=== PATIENT | male | born 1970 | race American Indian/Alaskan Native ===

== ENCOUNTER 2018-04-30 05:47 | Emergency (ER) | payer MEDICAID ==
[2018-04-30 06:29] VITALS: BP 134/79
[2018-04-30] MEDS ORDERED: DUONEB *Not for PRN Use IH ONE (06:34)
--- NOTE | 2018-04-30 06:34 | Emergency Department Report ---
<ANTONIA WICK - Last Filed: 04/30/18 09:37> ED General Adult HPI - General Chief complaint: Head Injury Stated complaint: HEAD INJURY Time Seen by Provider: 04/30/18 06:22 - Related Data Previous Rx's Medication Instructions Recorded Last Taken Type ALBUTEROL Inhaler (OR & NICU) 2 puff IH Q4HR PRN #1 inhalation 04/30/18 Unknown Rx [ProAir HFA Inhaler] Benzonatate [Tessalon Perles] 100 mg PO Q8HR PRN #20 capsule 04/30/18 Unknown Rx HYDROcodone/APAP 5-325 [[place] 1 each PO Q6HR PRN #12 tablet 04/30/18 Unknown Rx 5/325] guaiFENesin/CODEINE [Robitussin AC] 5 ml PO Q12HR PRN #180 oral.liqd 04/30/18 Unknown Rx levoFLOXacin [Levaquin] 750 mg PO QDAY #5 tablet 04/30/18 Unknown Rx Allergies Allergy/AdvReac Type Severity Reaction Status Date / Time No Known Allergies Allergy Verified 04/30/18 08:08 ED Past Medical Hx - Medications Home Medications: Home Medications Medication Instructions Recorded Confirmed Last Taken Type ALBUTEROL Inhaler (OR & NICU) 2 puff IH Q4HR PRN #1 inhalation 04/30/18 Unknown Rx [ProAir HFA Inhaler] Benzonatate [Tessalon Perles] 100 mg PO Q8HR PRN #20 capsule 04/30/18 Unknown Rx HYDROcodone/APAP 5-325 [[place] 1 each PO Q6HR PRN #12 tablet 04/30/18 Unknown Rx 5/325] guaiFENesin/CODEINE [Robitussin AC] 5 ml PO Q12HR PRN #180 oral.liqd 04/30/18 Unknown Rx levoFLOXacin [Levaquin] 750 mg PO QDAY #5 tablet 04/30/18 Unknown Rx - Laceration /Wound Repair Right Head Wound Location: head (right scalp) Wound Length (cm): 10 Wound's Depth, Shape: flap Wound Explored: clean Irrigated w/ Saline (ccs): 40 Betadine Prep?: Yes Anesthesia: Lidocaine w/ Epi (1% with 1:200,000) Volume Anesthetic (ccs): 8 Wound Repaired With: sutures Layer Closure?: Yes Deep Layer Suture Size/Type: 3:0 (Vicryl) Number Deep Layer Sutures: 1 Progress: Under sterile field, I used Betadine to clean the area. I then used 40 mL of normal saline to flush the area. Hans Cardona used 1% lidocaine with epi 1- 200,000 and injected 8 mL to the wound. I then used a 3-0 Vicryl to suture the laceration to proximate the lac with total of 1 stitch placed. I then used Stapler and stapled the lac with total of 13 gio placed. I then applied a sterile 4 x 4 with tape. Minimal bleeding noted but is under control. Patient tolerated procedure well with no signs of distress. ED Medical Decision Making - Lab Data Result diagrams: 04/30/18 06:49 04/30/18 06:49 - Medical Decision Making Patient was seen by Hans Cardona. I performed the lac repair. Please review lac procedure notes. ED Disposition Clinical Impression: Pneumonia, Laceration, Head injury, Vasovagal episode Disposition: - TO HOME OR SELFCARE Condition: Stable Instructions: Bacterial Pneumonia (ED), Laceration (ED), Minor Head Injury (ED) Additional Instructions: return if worse Prescriptions: ALBUTEROL Inhaler (OR & NICU) [ProAir HFA Inhaler] 2 puff IH Q4HR PRN #1 inhalation PRN Reason: Shortness Of Breath Benzonatate [Tessalon Perles] 100 mg PO Q8HR PRN #20 capsule PRN Reason: Cough guaiFENesin/CODEINE [Robitussin AC] 5 ml PO Q12HR PRN #180 oral.liqd PRN Reason: Cough HYDROcodone/APAP 5-325 [[place] 5/325] 1 each PO Q6HR PRN #12 tablet PRN Reason: Pain levoFLOXacin [Levaquin] 750 mg PO QDAY #5 tablet Referrals: [facility] MD SARAH [Primary Care Provider] - 3-5 Days DEYANIRA ABBOTT MD [Staff Physician] - 3-5 Days KIMMY DIAZ MD [Staff Physician] - 3-5 Days CATALINA ANNE DO [Staff Physician] - 3-5 Days ROSHAN LINDER MD [Staff Physician] - 3-5 Days [facility] [Provider Group] - 3-5 Days [facility] [Provider Group] - 3-5 Days [facility] [Outside] - 3-5 Days [facility] [Provider Group] - 3-5 Days <LELA RODRIGUEZ - Last Filed: 04/30/18 10:01> ED General Adult HPI - General Source: patient Mode of arrival: Ambulatory Limitations: No Limitations - History of Present Illness Initial comments: She presents to emergency department with chief complaint of syncopal episode around midnight last night with resultant head injury includes a laceration of the scalp. Patient also complains of increased shortness of breath and has a history of COPD and congestive heart failure. Patient denies chest pain. -: Sudden Location: head Severity scale (0 -10): 10 Quality: aching Consistency: constant Improves with: none Worsens with: none Associated Symptoms: denies other symptoms Treatments Prior to Arrival: none ED Review of Systems ROS: Stated complaint: HEAD INJURY Other details as noted in HPI Constitutional: denies: chills, fever Eyes: denies: eye pain, eye discharge, vision change ENT: denies: ear pain, throat pain Respiratory: shortness of breath. denies: cough, wheezing Cardiovascular: denies: chest pain, palpitations Endocrine: no symptoms reported Gastrointestinal: denies: abdominal pain, nausea, diarrhea Genitourinary: denies: urgency, dysuria Musculoskeletal: denies: back pain, joint swelling, arthralgia Skin: denies: rash, lesions Neurological: denies: headache, weakness, paresthesias Psychiatric: denies: anxiety, depression Hematological/Lymphatic: denies: easy bleeding, easy bruising ED Past Medical Hx - Past Medical History Previous Medical History?: Yes Hx Hypertension: Yes Hx Seizures: Yes (No seizure in 2 years) Additional medical history: Colostomy bag - Surgical History Past Surgical History?: Yes Additional Surgical History: Colostomy bag - Social History Smoking Status: Current Every Day Smoker ED Physical Exam - General Limitations: No Limitations General appearance: alert, in no apparent distress - Head Head exam: Present: normocephalic, other (2 cm laceration to the parietal aspect of right side of the scalp) - Eye Eye exam: Present: normal appearance, PERRL, EOMI - ENT ENT exam: Present: mucous membranes moist - Neck Neck exam: Present: normal inspection - Respiratory Respiratory exam: Present: normal lung sounds bilaterally, wheezes, rales. Absent: respiratory distress - Cardiovascular Cardiovascular Exam: Present: regular rate, normal rhythm. Absent: systolic murmur, diastolic murmur, rubs, gallop - GI/Abdominal GI/Abdominal exam: Present: soft, normal bowel sounds, other (there is some umbilicus bruising from coughing colostomy in place). Absent: distended, tenderness - Rectal Rectal exam: Present: deferred - Extremities Exam Extremities exam: Present: normal inspection - Back Exam Back exam: Present: normal inspection - Neurological Exam Neurological exam: Present: alert, oriented X3 - Psychiatric Psychiatric exam: Present: normal affect, normal mood - Skin Skin exam: Present: warm, dry, intact, normal color. Absent: rash ED Course Vital Signs 04/30/18 04/30/18 04/30/18 05:59 06:27 07:56 Temperature 98.1 F 98.2 F Pulse Rate 132 H 100 H Pulse Rate [ 126 H Posterior Bilateral Throughout] Respiratory 24 19 Rate Respiratory 20 Rate [Posterior Bilateral Throughout] Blood Pressure 142/91 Blood Pressure 134/79 [Left] O2 Sat by Pulse 97 97 Oximetry 04/30/18 04/30/18 04/30/18 08:13 08:17 08:34 Temperature Pulse Rate Pulse Rate [ 151 H 125 H 128 H Posterior Bilateral Throughout] Respiratory Rate Respiratory 24 20 20 Rate [Posterior Bilateral Throughout] Blood Pressure Blood Pressure [Left] O2 Sat by Pulse Oximetry ED Medical Decision Making - Lab Data Result diagrams: 04/30/18 06:49 04/30/18 06:49 Lab Results 04/30/18 04/30/18 04/30/18 Range/Units 06:49 06:49 06:49 WBC 10.3 (4.5-11.0) K/mm3 RBC 5.17 H (3.65-5.03) M/mm3 Hgb 15.5 H (11.8-15.2) gm/dl Hct 44.9 (35.5-45.6) % MCV 87 (84-94) fl MCH 30 (28-32) pg MCHC 35 H (32-34) % RDW 14.6 (13.2-15.2) % Plt Count 269 (140-440) K/mm3 Lymph % (Auto) 25.7 (13.4-35.0) % [place] % (Auto) 7.7 H (0.0-7.3) % Eos % (Auto) 3.1 (0.0-4.3) % Baso % (Auto) 1.1 (0.0-1.8) % Lymph # 2.6 (1.2-5.4) K/mm3 [place] # 0.8 (0.0-0.8) K/mm3 Eos # 0.3 (0.0-0.4) K/mm3 Baso # 0.1 (0.0-0.1) K/mm3 Seg Neutrophils % 62.4 (40.0-70.0) % Seg Neutrophils # 6.4 (1.8-7.7) K/mm3 PT 13.9 (12.2-14.9) Sec. INR 1.01 (0.87-1.13) APTT 27.6 (24.2-36.6) Sec. Sodium 136 L (137-145) mmol/L Potassium 3.4 L (3.6-5.0) mmol/L Chloride 99.2 (98-107) mmol/L Carbon Dioxide 22 (22-30) mmol/L Anion Gap 18 mmol/L BUN 10 (9-20) mg/dL Creatinine 1.0 (0.8-1.5) mg/dL Estimated GFR > 60 ml/min BUN/Creatinine Ratio 10 % Glucose 139 H (75-100) mg/dL Calcium 8.3 L (8.4-10.2) mg/dL Total Bilirubin 0.40 (0.1-1.2) mg/dL AST 32 (5-40) units/L ALT 35 (7-56) units/L Alkaline Phosphatase 57 (35-129) units/L NT-Pro-B Natriuret Pep 31.93 (0-450) pg/mL Total Protein 7.0 (6.3-8.2) g/dL Albumin 3.6 L (3.9-5) g/dL Albumin/Globulin Ratio 1.1 % - EKG Data -: EKG Interpreted by Nm EKG shows normal: sinus rhythm Rate: tachycardia - Radiology Data Radiology results: report reviewed - Medical Decision Making Discussed results with patient and need to follow with primary care physician Critical care attestation.: If time is entered above; I have spent that time in minutes in the direct care of this critically ill patient, excluding procedure time. ED Disposition Is pt being admited?: No Does the pt Need Aspirin: No Time of Disposition: 10:00
--- NOTE | 2018-04-30 07:09 | XRay Report ---
FINAL REPORT EXAM: XR CHEST 1V AP HISTORY: sob TECHNIQUE: AP portable view(s) of the chest obtained. PRIORS: None. FINDINGS: No mediastinal shift. Cardiac silhouette is not enlarged. No pneumothorax or definite effusion. Patch y right basilar opacities. Diffuse interstitial prominence. No acute skeletal finding. IMPRESSION: Right lower lung airspace disease. Basilar interstitial prominence may also be infectious or due to e donald. PA and lateral chest radiographic follow-up to resolution is recommended.
[2018-04-30 07:12] LABS: Basophils # (Auto) 0.1 K/mm3 (0.0-0.1); Basophils % (Auto) 1.1 % (0.0-1.8); Eosinophils # (Auto) 0.3 K/mm3 (0.0-0.4); Eosinophils % (Auto) 3.1 % (0.0-4.3); Hematocrit 44.9 % (35.5-45.6); Hemoglobin 15.5 gm/dl (11.8-15.2); Lymphocytes # (Auto) 2.6 K/mm3 (1.2-5.4); Lymphocytes % (Auto) 25.7 % (13.4-35.0); Mean Corpuscular HGB Conc 35 % (32-34); Mean Corpuscular Volume 87 fl (84-94); Monocytes # (Auto) 0.8 K/mm3 (0.0-0.8); Monocytes % (Auto) 7.7 % (0.0-7.3); Platelet Count 269 K/mm3 (140-440); Red Blood Count 5.17 M/mm3 (3.65-5.03); Red Cell Distribution Width 14.6 % (13.2-15.2)
[2018-04-30 07:22] LABS: INR 1.01 (0.87-1.13); Partial Thromboplastin Time 27.6 Sec. (24.2-36.6)
--- NOTE | 2018-04-30 07:30 | Cat Scan Report ---
CT HEAD WITHOUT CONTRAST: HISTORY: Syncope, head injury. TECHNIQUE: Sequential 2.5mm CT images. COMPARISON: none. FINDINGS: Cerebral Parenchyma: Within normal limits. Cerebellum: Within normal limits. Brainstem: Within normal limits. Ventricles: Normal. Sella: Normal. Extra-axial spaces: Normal. Basal Cisterns: Normal. Intracranial Hemorrhage: None. Midline Shift: None. Calvarium: No calvarial fracture. There is a moderate soft tissue hematoma in the right parietal region. Sinuses: Severe mucosal thickening is identified in the ethmoid air cells and right maxillary sinus. Mastoid Air Cells: Normal. Visualized Orbits: Normal. IMPRESSION: Right parietal soft tissue injury. No acute intracranial findings. Chronic sinus disease.
[2018-04-30 07:31] LABS: Alanine Aminotransferase 35 units/L (7-56); Albumin 3.6 g/dL (3.9-5); BUN/Creatinine Ratio 10; Blood Urea Nitrogen 10 mg/dL (9-20); Calcium 8.3 mg/dL (8.4-10.2); Hemolysis Index 14
[2018-04-30] MEDS ORDERED: ZOFRAN ODT PO ONE (07:58)
[2018-04-30] MEDS ORDERED: NORCO 10/325 PO ONE (07:58)
[2018-04-30] MEDS ORDERED: XOPENEX IH ONE (08:14)
[2018-04-30] MEDS ORDERED: NACL 0.9% 500 ML IR ONE (08:41)
[2018-04-30] MEDS ORDERED: XYLOCAINE 1%/ EPI 1:100,000 INFILTRATI NR (09:00)
[2018-04-30] MEDS ORDERED: LEVAQUIN PO ONE (10:00)
[2018-04-30] MEDS ORDERED: NACL 0.9% IR ONE (10:37)
== END 2018-04-30 10:39 | disposition home or self-care (01) ==
LOC: ED 05:47
DX: S09.90XA Unspecified injury of head, initial encounter (principal); T14.8XXA Other injury of unspecified body region, initial encounter; J18.9 Pneumonia, unspecified organism; R55 Syncope and collapse; I11.0 Hypertensive heart disease with heart failure; I50.9 Heart failure, unspecified; F17.200 Nicotine dependence, unspecified, uncomplicated; W19.XXXA Unspecified fall, initial encounter; Y93.89 Activity, other specified; Y92.89 Other specified places as the place of occurrence of the external cause; Y99.8 Other external cause status
CPT/HCPCS: 36415; 70450; 71045; 80053; 83880; 85025; 85610; 85730; 93005; 93010; 94640; Q0162

== ENCOUNTER 2018-05-08 12:53 | Emergency (ER) | payer MEDICAID ==
--- NOTE | 2018-05-08 12:59 | Emergency Department Report ---
Suture/Staple Removal - [facility] Chief Complaint: Laceration/Recheck/Suture Stated Complaint: STAPLE REMOVAL Time Seen by Provider: 05/08/18 12:58 Wound Location: right head scalp area ED Review of Systems ROS: Stated complaint: STAPLE REMOVAL Other details as noted in HPI Constitutional: denies: chills, fever Eyes: denies: eye pain, eye discharge, vision change ENT: denies: ear pain, throat pain Respiratory: denies: cough, shortness of breath, wheezing Cardiovascular: denies: chest pain, palpitations Endocrine: no symptoms reported Gastrointestinal: denies: abdominal pain, nausea, diarrhea Genitourinary: denies: urgency, dysuria Musculoskeletal: denies: back pain, joint swelling, arthralgia Skin: denies: rash, lesions Neurological: denies: headache, weakness, paresthesias Psychiatric: denies: anxiety, depression Hematological/Lymphatic: denies: easy bleeding, easy bruising ED Past Medical Hx - Past Medical History Hx Hypertension: Yes Hx Congestive Heart Failure: Yes Hx Seizures: Yes (No seizure in 2 years) Hx COPD: Yes Additional medical history: Colostomy bag - Surgical History Additional Surgical History: Colostomy bag - Social History Smoking Status: Current Every Day Smoker - Medications Home Medications: Home Medications Medication Instructions Recorded Confirmed Last Taken Type ALBUTEROL Inhaler (OR & NICU) 2 puff IH Q4HR PRN #1 inhalation 04/30/18 Unknown Rx [ProAir HFA Inhaler] Benzonatate [Tessalon Perles] 100 mg PO Q8HR PRN #20 capsule 04/30/18 Unknown Rx HYDROcodone/APAP 5-325 [[place] 1 each PO Q6HR PRN #12 tablet 04/30/18 Unknown Rx 5/325] guaiFENesin/CODEINE [Robitussin AC] 5 ml PO Q12HR PRN #180 oral.liqd 04/30/18 Unknown Rx levoFLOXacin [Levaquin] 750 mg PO QDAY #5 tablet 04/30/18 Unknown Rx Suture Removal Exam - Exam General: Vital signs noted. No distress. Alert and acting appropriately. Wound: No Pathologic Erythema, No Tenderness, No Drainage, No Pus, No Wound Dehiscence Other Systems: All other systems reviewed and are unremarkable. ED Course - Reevaluation(s) Reevaluation #1: 05/08/18 13:04 Patient is speaking in full sentences with no signs of distress noted. ED Recheck MDM - Medical Decision Making Total of 13 gio removed. Patient tolerated well. Normal healing. Stated has been not taken his BP medications but is in [facility] and will pick it up. Denies any symptoms. Denies any headache or any complaints. At the time of discharge, patient understand to discharge instructions and agreed to the ED discharge plan of care. Critical care attestation.: If time is entered above; I have spent that time in minutes in the direct care of this critically ill patient, excluding procedure time. ED Disposition Clinical Impression: Removal of staple Disposition: DC-01 TO HOME OR SELFCARE Is pt being admited?: No Does the pt Need Aspirin: No Condition: Stable Additional Instructions: Follow-up with a primary care doctor in 3-5 days or if symptoms worsen and continue return to the emergency department as soon as possible. Referrals: PRIMARY CAREMD [Referring] - 3-5 Days SHANICE ALMEIDA MD [Staff Physician] - 3-5 Days [facility] [Outside] - 3-5 Days Forms: Work/School Release Form(ED)
== END 2018-05-08 13:11 | disposition home or self-care (01) ==
LOC: ED 12:53